=== PATIENT | female | born 1975 | race Caucasian/White ===

== ENCOUNTER 2017-05-30 07:22 | Emergency (ER) | payer MEDICAID, OTHER ==
[~2017-05-30] VITALS: Ht 182.9 cm; Wt 120.0 kg
[2017-05-30 08:03] LABS: HCG UR LOT HCG7030192
[2017-05-30 08:16] LABS: PATH.CAST-FLAG NOT PRESENT; SPERM-FLAG NOT PRESENT; SRC-FLAG NOT PRESENT; XTAL-FLAG NOT PRESENT; YLC-FLAG NOT PRESENT
[2017-05-30 08:19] LABS: HCG UR OBC PASS
[2017-05-30] MEDS ORDERED: CEFTRIAXONE 1,000 MG IM ONE (09:00)
[2017-05-30] MEDS ORDERED: AZITHROMYCIN 500 MG TABLET PO ONE (09:00)
[2017-05-30] MEDS ORDERED: CEFTRIAXONE 250 MG ONE (09:35)
[2017-05-30] MEDS ORDERED: AZITHROMYCIN 250 MG TABLET ONE (09:36)
[2017-05-30 10:08] VITALS: BP 108/66
== END 2017-05-30 10:10 | disposition home or self-care (01) ==
LOC: ED 08:14
DX: N30.90 Cystitis, unspecified without hematuria (principal)
CPT/HCPCS: 72110; 81001; 81025; 87077; 87086; 87491; 87591; 96372; 99285; J0696; 87186

== ENCOUNTER 2017-08-30 07:57 | Emergency (ER) | payer MEDICAID ==
[~2017-08-30] VITALS: Ht 182.9 cm; Wt 122.7 kg
[2017-08-30 07:59] VITALS: BP 158/107
== END 2017-08-30 10:12 | disposition home or self-care (01) ==
LOC: ED 10:10
DX: L02.811 Cutaneous abscess of head [any part, except face] (principal); L02.612 Cutaneous abscess of left foot; L02.611 Cutaneous abscess of right foot
CPT/HCPCS: 99283